=== PATIENT | male | born 1990 | race Hispanic/Latino ===

== ENCOUNTER 2025-05-07 16:24 | Emergency (ER) | payer SELFPAY ==
[~2025-05-07] VITALS: Ht 167.6 cm; Wt 77.2 kg
[2025-05-07 16:46] VITALS: PULSE 61; RESP 16; TEMP 98.5; O2SAT 98
[2025-05-07] MEDS: TETANUS/DIPHTHERIA TOX ADULT 0.5 ML SYR IM ONE (17:07)
== END 2025-05-07 17:12 | disposition home or self-care (01) ==
LOC: FSED 16:27
DX: S01.23XA Puncture wound without foreign body of nose, initial encounter (principal); W26.8XXA Contact with other sharp object(s), not elsewhere classified, initial encounter; W27.2XXA Contact with scissors, initial encounter; Y92.89 Other specified places as the place of occurrence of the external cause
CPT/HCPCS: 90471; 90714; 99283